=== PATIENT | female | born 1990 | race Two or more races ===

== ENCOUNTER 2017-05-22 19:04 | Emergency (ER) | payer OTHER ==
[~2017-05-22] VITALS: Ht 154.9 cm; Wt 104.3 kg
[2017-05-22] MEDS ORDERED: NKM (19:17)
[2017-05-22 19:30] VITALS: BP 133/82
[2017-05-22] MEDS ORDERED: Bacitracin Oint UD TOPIC ONE (19:45)
[2017-05-22] MEDS ORDERED: Tetanus/Diptheria/Pertussis Vaccine 0.5ml Syr IM ONE (20:00)
--- NOTE | 2017-05-22 20:13 | Emergency Room Report ---
History of Present Illness General Chief Complaint: Wound Recheck/Suture Removal Source: Patient Present Illness HPI 26 Yo Female presents to the ED c/O in severity pain, tenderness, erythema about several open wounds on her right foot that were sustained 2 days ago. pt. reports stepping through a plastic covering on the ground at a hot tub. pt. reports open wounds were sustained from this, and that her symptoms have been progressive. pt. reported initial bleeding. she reports oozing/ crusting now with erythema. pt. is not sure when her last tetanus vaccination was. palpation and weight bearing exacerbate her symptoms. Denies fevers or chills. denies bony pain. Denies numbness tingling or loss of sensation or gross motor movements of the extremities, incontinence of bowel or bladder. Denies CP, Palpitations, LOC, AMS, dizziness, Changes in Vision, Sensation, paresthesias, or a sudden severe headache. Allergies: Coded Allergies: No Known Allergies (Unverified , 05/22/17) Patient History Past Medical History: see triage record Past Surgical History: none Pertinent Family History: none Last Menstrual Period: 2 weeks ago Reviewed Nursing Documentation: PMH: Agreed, PSxH: Agreed Nursing Documentation-PMH Past Medical History: No Stated History Review of Systems All Other Systems: negative except mentioned in HPI Physical Exam Vital Signs Date Time Temp Pulse Resp B/P (MAP) Pulse Ox O2 Delivery O2 Flow Rate FiO2 05/22/17 19:17 99.0 82 16 133/82 97 Room Air Sp02 EP Interpretation: reviewed, normal General Appearance: alert, GCS 15, non-toxic, mild distress Head: normocephalic, atraumatic Eyes: bilateral eye normal inspection, bilateral eye PERRL ENT: hearing grossly normal, normal voice Neck: full range of motion Respiratory: lungs clear, normal breath sounds, speaking full sentences Cardiovascular #1: regular rate, rhythm, normal capillary refill Musculoskeletal: back normal, gait/station normal, normal range of motion, swelling - right foot swelling, erythema, and increased temperature to palpation. good cap refill, pedal pulses equal, and NVI. erythema is most prominently surrounding crusted abrasion on the plantar aspect of the right great toe. , tender - right foot. Neurologic: alert, oriented x3, responsive, motor strength/tone normal, sensory intact, speech normal Skin: no rash, warm/dry, well hydrated, other - right foot swelling, erythema, and increased temperature to palpation. good cap refill, pedal pulses equal, and NVI. erythema is most prominently surrounding crusted abrasion on the plantar aspect of the right great toe. , abrasions Medical Decision Making PA Attestation Dr. Golden is my supervising Physician whom patient management has been discussed with. Diagnostic Impression: Primary Impression: Cellulitis Qualified Codes: L03.115 - Cellulitis of right lower limb Additional Impression: Abrasions of multiple sites ER Course 26 Yo Female presents to the ED c/O in severity pain, tenderness, erythema about several open wounds on her right foot that were sustained 2 days ago. pt. reports stepping through a plastic covering on the ground at a hot tub. pt. reports open wounds were sustained from this, and that her symptoms have been progressive. pt. reported initial bleeding. she reports oozing/ crusting now with erythema. pt. is not sure when her last tetanus vaccination was. palpation and weight bearing exacerbate her symptoms. Denies fevers or chills. denies bony pain. Denies numbness tingling or loss of sensation or gross motor movements of the extremities, incontinence of bowel or bladder. Denies CP, Palpitations, LOC, AMS, dizziness, Changes in Vision, Sensation, paresthesias, or a sudden severe headache. Ddx considered but are not limited to cellulitis, DVT, ingrown toe nail, fracture, d/L, gout just to name a few. Vital signs: are WNL, pt. is afebrile H&PE are most consistent with abrasions of multiple sites on the right LE, and secondary cellulitis. ORDERS: none required at this time, the diagnosis is clinical ED INTERVENTIONS: -Tdap vaccination is administered. - Bactrim PO - Keflex PO - Bacitracin is applied after wound cleaning. --Patient is provided with crutches and instructed on their use DISCHARGE: At this time pt. is stable for d/c to home. Will provide printed patient care instructions, and any necessary prescriptions. Care plan and follow up instructions have been discussed with the patient prior to discharge. Last Vital Signs Date Time Temp Pulse Resp B/P (MAP) Pulse Ox O2 Delivery O2 Flow Rate FiO2 05/22/17 19:17 99.0 82 16 133/82 97 Room Air Disposition: HOME, SELF-CARE Condition: Stable Scripts Trimethoprim/Sulfamethoxazole 160/800* (BACTRIM DS TABLET*) 1 Each Tablet 1 TAB ORAL TWICE A DAY for 7 Days, #14 TAB Prov: Yessenia Powers 05/22/17 Cephalexin* (KEFLEX*) 500 Mg Capsule 500 MG ORAL EVERY 12 HOURS for 7 Days, #14 CAP 0 Refills Prov: Yessenia Powers 05/22/17 Mupirocin Calcium (Bactroban) 15 Gm Cream..g. 1 APPLIC TOPIC THREE TIMES A DAY, #15 GM Prov: Yessenia Powers 05/22/17 Hydrocodone Bit/Acetaminophen 5-325* (NORCO 5-325*) 1 Each Tablet 1 TAB ORAL Q6H Y for For Pain, #5 TAB 0 Refills Prov: Yessenia Powers 05/22/17 Referrals: OTHER,REFERRING (PCP) Patient Instructions: Cellulitis Additional Instructions: Take medications as directed. Follow up with a Primary Care Provider in 3-5 days, even if your symptoms have resolved. --Please review list of primary care clinics, if you do not already have a primary care provider Return sooner to ED if new symptoms occur, or current symptoms become worse. Do not drink alcohol, drive, or operate heavy machinery while taking [place] as this may cause drowsiness. - Please note that this Emergency Department Report was dictated using [employer] system supervisor technology software, occasionally this can lead to erroneous entry secondary to interpretation by the dictation equipment. Yessenia Powers May 22, 2017 20:13
[2017-05-22] MEDS ORDERED: Bactrim DS (160mg/800mg) tab ORAL ONE (20:15)
[2017-05-22] MEDS ORDERED: Cephalexin 500mg cap ORAL ONE (20:15)
[2017-05-22] MEDS ORDERED: NORCO 5-325 TA1 EACH ORAL (20:29)
[2017-05-22] MEDS ORDERED: CEPHALEXIN500 MG ORAL (20:29)
[2017-05-22] MEDS ORDERED: BACTROBAN CR1 APPLIC TOPIC (20:29)
[2017-05-22] MEDS ORDERED: BACTRIM DS TAB1 EAC1 ORAL (20:29)
[2017-05-22 20:45] VITALS: BP 137/86
[2017-05-22 20:57] VITALS: BP 137/86
== END 2017-05-22 20:57 | disposition home or self-care (01) ==
LOC: EMR 19:46
DX: L03.115 Cellulitis of right lower limb (principal); S90.811A Abrasion, right foot, initial encounter; Z23 Encounter for immunization; W22.09XA Striking against other stationary object, initial encounter; Y92.9 Unspecified place or not applicable
CPT/HCPCS: 90471; 90715; 99284

== ENCOUNTER 2017-12-28 19:29 | Emergency (ER) | payer MEDICAID, OTHER ==
[~2017-12-28] VITALS: Ht 154.9 cm; Wt 108.9 kg
[~2017-12-28 19:29] MED LIST: BACTRIM DS TAB1 EAC1 ORAL; BACTROBAN CR1 APPLIC TOPIC; CEPHALEXIN500 MG ORAL; NKM; NORCO 5-325 TA1 EACH ORAL
--- NOTE | 2017-12-28 20:58 | Diagnostic Imaging Report ---
EXAM: XR Abdomen, 2 Views CLINICAL HISTORY: PAIN TECHNIQUE: Frontal view of the abdomen/pelvis with upright view of the abdomen. COMPARISON: No relevant prior studies available. FINDINGS: Intraperitoneal space: See below. Gastrointestinal tract: Unremarkable. No dilation. Bones/joints: Unremarkable. Soft tissues: IUD projects within the central pelvis. IMPRESSION: 1. IUD projects within the central pelvis. 2. Unremarkable study.
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
[2017-12-28] MEDS ORDERED: NAPROXEN250 MG ORAL (21:07)
[2017-12-28 21:21] VITALS: BP 116/79
== END 2017-12-28 21:22 | disposition home or self-care (01) ==
LOC: EMR 20:15
DX: R10.9 Unspecified abdominal pain (principal); M54.2 Cervicalgia; M54.9 Dorsalgia, unspecified
CPT/HCPCS: 74018; 99283

== ENCOUNTER 2018-08-09 16:44 | Emergency (ER) | payer MEDICAID ==
[~2018-08-09] VITALS: Ht 154.9 cm; Wt 110.7 kg
[~2018-08-09 16:44] MED LIST changes: +NAPROXEN250 MG ORAL
[2018-08-09] MEDS ORDERED: VENTOLIN HFA18 GM INH (16:52)
[2018-08-09 16:59] VITALS: BP 115/75
[2018-08-09] MEDS ORDERED: Ipratropium 0.02% Inh Soln 2.5ml UD HHN ONE (17:15)
[2018-08-09] MEDS ORDERED: Albuterol ud Inhalation HHN ONE ×2 (17:15→18:00)
[2018-08-09] MEDS ORDERED: Promethazine/Codeine 5ml UD ORAL ONE (18:00)
--- NOTE | 2018-08-09 18:20 | Emergency Room Report ---
History of Present Illness General Chief Complaint: Asthma Source: Patient Present Illness HPI Patient presents with reports of increased asthma exacerbation Reports that her home medications were not helping very much Denies any productive sputum however she has had increased cough Denies any chest pain denies any vomiting or diarrhea denies any neck pain or photophobia Patient reports that she does get several exacerbations throughout the year Allergies: Coded Allergies: No Known Allergies (Unverified , 05/22/17) Patient History Past Medical History: see triage record Pertinent Family History: none Last Menstrual Period: 06/2018 Now: No Reviewed Nursing Documentation: PMH: Agreed; PSxH: Agreed Nursing Documentation-PM Past Medical History: No History, Except For Hx Asthma: Yes Review of Systems All Other Systems: negative except mentioned in HPI Physical Exam Vital Signs Date Time Temp Pulse Resp B/P (MAP) Pulse Ox O2 Delivery O2 Flow Rate FiO2 08/09/18 16:47 98.2 137 23 123/72 96 Room Air 08/09/18 17:04 21 Sp02 EP Interpretation: reviewed, normal General Appearance: well appearing, no apparent distress Head: normocephalic, atraumatic Eyes: bilateral eye PERRL, bilateral eye EOMI ENT: hearing grossly normal, normal pharynx, TMs + canals normal, uvula midline Neck: full range of motion, supple, no meningismus, no bony tend Respiratory: no rhonchi, no respiratory distress, no retraction, no accessory muscle use, wheezing - Bilaterally Cardiovascular #1: normal peripheral pulses, regular rate, rhythm, no edema, no gallop, no JVD, no murmur Gastrointestinal: normal bowel sounds, non tender, soft, no mass, no organomegaly, non-distended, no guarding, no hernia, no pulsatile mass, no rebound Genitourinary: no CVA tenderness Musculoskeletal: normal inspection Neurologic: oriented x3, responsive, dentistry professor III-XII nml as tested, motor strength/ tone normal, sensory intact Psychiatric: mood/affect normal Skin: normal color, no rash, warm/dry, palpation normal Lymphatic: normal inspection, no adenopathy Medical Decision Making Diagnostic Impression: Primary Impression: Asthma attack ER Course Multiple differentials in consideration Patient has breathing treatments initiated along with oral steroids On repeat evaluation lung sounds have significantly improved Patient was somewhat tachycardic however has had several albuterol dosages Likely explaining this tachycardia patient otherwise feels significantly improved and will have initial conservative outpatient trial Last Vital Signs Date Time Temp Pulse Resp B/P (MAP) Pulse Ox O2 Delivery O2 Flow Rate FiO2 08/09/18 18:09 127 24 97 Room Air 21 08/09/18 16:59 98.0 115/75 Status: improved Disposition: HOME, SELF-CARE Condition: Improved Scripts Ibuprofen* (MOTRIN*) 600 Mg Tablet 600 MG ORAL Q8H PRN for For Pain, #20 TAB 0 Refills Prov: Tamiko Nguyen DO 08/09/18 Prednisone* (PREDNISONE*) 20 Mg Tablet 20 MG ORAL BID, #8 TAB Prov: Tamiko Nguyen DO 08/09/18 Promethazine Hcl (PROMETHAZINE HCL*) 6.25 Mg/5 Ml Syrup 5 ML ORAL Q8H, #120 ML 0 Refills Prov: Tamiko Nguyen DO 08/09/18 Albuterol Sulfate* (ALBUTEROL SULFATE HHN*) 2.5 Mg/3 Ml Vial.neb 2.5 MG HHN Q4H PRN for Shortness of Breath, #25 VIAL Prov: Tamiko Nguyen DO 08/09/18 Referrals: [facility],REFERRING (PCP) Additional Instructions: Patient is provided with the discharge instructions notified to follow up with primary doctor in the next 2-3 days otherwise return to the er with any worsening symptoms. Please note that this report is being documented using [employer] technology. This can lead to erroneous entry secondary to incorrect interpretation by the dictating instrument. Tamiko Nguyen DO Aug 09, 2018 18:20
[2018-08-09] MEDS ORDERED: ALBUTEROL2.5 MG/3 M HHN (18:41)
[2018-08-09] MEDS ORDERED: PROMETHAZI6.25 MG/1 ORAL (18:41)
[2018-08-09] MEDS ORDERED: PREDNISONE20 MG ORAL (18:42)
[2018-08-09] MEDS ORDERED: IBUPROFEN600 MG ORAL (18:53)
[2018-08-09 19:06] VITALS: BP 135/68
== END 2018-08-09 19:10 | disposition home or self-care (01) ==
LOC: EMR 17:26
DX: J45.901 Unspecified asthma with (acute) exacerbation (principal)
CPT/HCPCS: 94640; 99284; J7512

== ENCOUNTER 2018-10-26 20:34 | Inpatient (IN) | payer MEDICAID ==
[~2018-10-26] VITALS: Ht 154.9 cm; Wt 108.9 kg
[~2018-10-26 20:34] MED LIST changes: +ALBUTEROL2.5 MG/3 M HHN; +IBUPROFEN600 MG ORAL; +PREDNISONE20 MG ORAL; +PROMETHAZI6.25 MG/1 ORAL; +VENTOLIN HFA18 GM INH
[2018-10-26 21:04] VITALS: BP 118/85
--- NOTE | 2018-10-26 21:05 | NUR ---
ED Nurse Note: Patient walked in to ER c/o SOB for 2 days. pt has Asthma and inhalers she usually takes did not work. labored breathing with SOB noted. pt aao x4, mild agitation due to SOB, and ambulatory. skin clean and intact.
--- NOTE | 2018-10-26 21:10 | Emergency Room Report ---
History of Present Illness General Chief Complaint: Asthma Source: Patient Present Illness HPI Patient has history of asthma. She's had worsening dyspnea over the course of several days. She's been using her inhaler nebulizer says is not working for her. She has any fevers or chills. She has some back pain and headache also. She's had steroids in the past. She's not taking them at this time. She's been using given Ativan at home. This is not her worst attack. She doesn't believe she is at this time. She denies nausea vomiting or diarrhea. There is no calf pain or edema. She has some back pain with coughing. Allergies: Coded Allergies: No Known Allergies (Unverified , 05/22/17) Patient History Past Medical History: see triage record Social History: Denies: smoking Social History Narrative lives in [place] Last Menstrual Period: Oct 04 2018 Now: No Reviewed Nursing Documentation: PMH: Agreed; PSxH: Agreed Nursing Documentation-PMH Hx Asthma: Yes Review of Systems All Other Systems: negative except mentioned in HPI Physical Exam Vital Signs Date Time Temp Pulse Resp B/P (MAP) Pulse Ox O2 Delivery O2 Flow Rate FiO2 10/26/18 20:56 99.0 127 22 90 Room Air 10/26/18 21:04 118/85 Sp02 EP Interpretation: reviewed, normal General Appearance: well appearing, no apparent distress, GCS 15 Head: normocephalic Eyes: bilateral eye normal inspection, bilateral eye PERRL, bilateral eye EOMI ENT: moist mucus membranes Neck: supple Respiratory: no accessory muscle use, respiratory distress - mild, wheezing, expiration, inspiration Cardiovascular #1: no edema, tachycardia Cardiovascular #2: 2+ radial (R) Gastrointestinal: normal inspection, normal bowel sounds, non tender, no mass, non-distended, overweight Musculoskeletal: back normal, gait/station normal, normal range of motion, no calf tenderness, Roseann's Sign negative Neurologic: alert, oriented x3 Psychiatric: mood/affect normal Skin: normal inspection, warm/dry Medical Decision Making Diagnostic Impression: Primary Impression: Status asthmaticus Qualified Codes: J45.42 - Moderate persistent asthma with status asthmaticus Additional Impressions: Leukocytosis Qualified Codes: D72.828 - Other elevated white blood cell count Elevated lactic acid level Eosinophilia Hypomagnesemia ER Course Patient with a history of asthma with exacerbation at this time. She'll includes asthma, bronchitis, pneumonia amongst others. Patient will be evaluated with chest x-ray and labs. The patient retreated with Solu-Medrol and breathing treatments. Elevated WBC and lactate. Magnesium is low. Improved with treatment. Due to elevated WBC and lactate, I discussed staying in the hospital. She states she cannot. Will re-assess after magnesium and repeat lactate. She states she has no infective symptoms. Repeat lactic acid higher. I have told her that she risks by leaving the hospital. She states she has to drive family members. She is insisting on signing out AMA. She is asking if she should have antibiotics. I have stated I cannot say at this time and that this is one reason why she needs to be hospitalized. Will cover with rocephin and azithromycin. Also fluid resuscitation. Rediscussed risk of and patient now agrees with hospitalization. Improved and ambulates without dyspnea. Patient still wants to go home. Discussed with Dr. Mo who requests telemetry 2:00. Laboratory Tests Test 10/26/18 21:00 10/26/18 21:26 10/26/18 23:00 Urine Color Pale yellow Urine Appearance Clear Urine pH 5.0 (4.5-8.0) Urine Specific [place] 1.010 (1.005-1.035) Urine Protein Negative (NEGATIVE) Urine Glucose (UA) Negative (NEGATIVE) Urine Ketones Negative (NEGATIVE) Urine Blood Negative (NEGATIVE) Urine Nitrite Negative (NEGATIVE) Urine Bilirubin Negative (NEGATIVE) Urine Urobilinogen Normal MG/DL (0.0-1.0) Urine Leukocyte Esterase Negative (NEGATIVE) Urine HCG, Qualitative Negative (NEGATIVE) White Blood Count 17.1 K/UL (4.8-10.8) H Red Blood Count 4.89 M/UL (4.20-5.40) Hemoglobin 14.5 G/DL (12.0-16.0) Hematocrit 43.0 % (37.0-47.0) Mean Corpuscular Volume 88 FL (80-99) Mean Corpuscular Hemoglobin 29.7 PG (27.0-31.0) Mean Corpuscular Hemoglobin Concent 33.8 G/DL (32.0-36.0) Red Cell Distribution Width 12.9 % (11.6-14.8) Platelet Count 288 K/UL (150-450) Mean Platelet Volume 7.3 FL (6.5-10.1) Neutrophils (%) (Auto) 69.0 % (45.0-75.0) Lymphocytes (%) (Auto) 17.5 % (20.0-45.0) L Monocytes (%) (Auto) 4.0 % (1.0-10.0) Eosinophils (%) (Auto) 8.2 % (0.0-3.0) H Basophils (%) (Auto) 1.4 % (0.0-2.0) Sodium Level 136 MMOL/L (136-145) Potassium Level 3.9 MMOL/L (3.5-5.1) Chloride Level 101 MMOL/L (98-107) Carbon Dioxide Level 25 MMOL/L (21-32) Anion Gap 10 mmol/L (5-15) Blood Urea Nitrogen 11 mg/dL (7-18) Creatinine 0.8 MG/DL (0.55-1.30) Estimate Glomerular Filtration Rate > 60 mL/min (>60) Glucose Level 98 MG/DL (74-106) Lactic Acid Level 2.80 mmol/L (0.4-2.0) H 3.90 mmol/L (0.66-2.22) H Calcium Level 9.4 MG/DL (8.5-10.1) Magnesium Level 1.7 MG/DL (1.8-2.4) L Total Bilirubin 0.5 MG/DL (0.2-1.0) Aspartate Amino Transferase (AST) 23 U/L (15-37) Alanine Aminotransferase (ALT) 35 U/L (12-78) Alkaline Phosphatase 78 U/L (46-116) Total Creatine Kinase 195 U/L (26-308) Total Protein 7.4 G/DL (6.4-8.2) Albumin 3.8 G/DL (3.4-5.0) Globulin 3.6 g/dL Albumin/Globulin Ratio 1.1 (1.0-2.7) EKG Diagnostic Results Rate: tachycardiac Rhythm: NSR ST Segments: no acute changes Rhythm Strip Diag. Results EP Interpretation: yes Rhythm: no PVC's, no ectopy, other - ST Chest X-Ray Diagnostic Results Chest X-Ray Diagnostic Results : Chest X-Ray Ordered: Yes # of Views/Limited/Complete: 1 View Indication: Shortness of Breath EP Interpretation: Yes Interpretation: no consolidation, no effusion, no pneumothorax, other - hyperaeration Impression: Other Electronically Signed by: Electronically signed by Tay Golden MD Last Vital Signs Date Time Temp Pulse Resp B/P (MAP) Pulse Ox O2 Delivery O2 Flow Rate FiO2 10/27/18 09:56 110 20 98 Room Air 21 10/27/18 08:00 98.4 144/82 (102) Status: improved Disposition: ADMITTED INPATIENT Condition: Serious Tay Golden MD October 26, 2018 21:10
[2018-10-26] MEDS ORDERED: Ipratropium 0.02% Inh Soln 2.5ml UD HHN ONE (21:15)
[2018-10-26] MEDS ORDERED: Solu-MEDROL 125mg Inj IVP ONE (21:15)
[2018-10-26 21:30] LABS: APPEARANCE,URINE CLEAR; COLOR,URINE PALE YELLOW
[2018-10-26 21:31] LABS: BILIRUBIN, URINE NEGATIVE (NEGATIVE); GLUCOSE, URINE (UA) NEGATIVE (NEGATIVE); KETONES,URINE NEGATIVE (NEGATIVE); LEUKOCYTE ESTERASE ,URINE NEGATIVE (NEGATIVE); NITRITE,URINE NEGATIVE (NEGATIVE); PROTEIN,URINE NEGATIVE (NEGATIVE); UROBILINOGEN,URINE NORMAL MG/DL (0.0-1.0)
[2018-10-26] MEDS: Albuterol ud Inhalation HHN SCH ×3 (21:35→22:09)
--- NOTE | 2018-10-26 21:50 | NUR ---
ED Nurse Note: patient is getting breathing treatment in bed.
[2018-10-26 22:04] LABS: BASOPHILS % (AUTO) 1.4 % (0.0-2.0); EOSINOPHILS % (AUTO) 8.2 % (0.0-3.0); HEMOGLOBIN 14.5 G/DL (12.0-16.0); LYMPHOCYTES % (AUTO) 17.5 % (20.0-45.0); MEAN CORPUSCULAR VOLUME 88 FL (80-99); PLATELET COUNT 288 K/UL (150-450); RED BLOOD COUNT 4.89 M/UL (4.20-5.40); RED CELL DISTRIBUTION WIDTH 12.9 % (11.6-14.8); WHITE BLOOD COUNT 17.1 K/UL (4.8-10.8)
[2018-10-26] MEDS ORDERED: Acetaminophen Soln 160mg/5ml ORAL ONE ×2 (22:15→23:00)
[2018-10-26 22:20] LABS: ANION GAP 10 mmol/L (5-15); BLOOD UREA NITROGEN 11 mg/dL (7-18); CALCIUM 9.4 MG/DL (8.5-10.1); CARBON DIOXIDE 25 MMOL/L (21-32); CHLORIDE 101 MMOL/L (98-107); CREATININE 0.8 MG/DL (0.55-1.30); POTASSIUM 3.9 MMOL/L (3.5-5.1); SODIUM 136 MMOL/L (136-145)
[2018-10-26 22:25] LABS: ALANINE AMINOTRANSFERASE 35 U/L (12-78); ALBUMIN 3.8 G/DL (3.4-5.0); ALBUMIN/GLOBULIN RATIO 1.1 (1.0-2.7); ALKALINE PHOSPHATASE 78 U/L (46-116); ASPARTATE AMINO TRANSFERASE 23 U/L (15-37); BILIRUBIN,TOTAL 0.5 MG/DL (0.2-1.0); CREATINE KINASE 195 U/L (26-308)
[2018-10-26] MEDS ORDERED: cefTRIAXone 1 GM in NS 55 ML IVPB ONE (23:45)
[2018-10-26] MEDS ORDERED: Azithromycin 500 MG in D5W 275 ML IVPB ONE (23:45)
[2018-10-26] MEDS ORDERED: Sodium Chloride 3,300 ML IVLG ONE (23:45)
[2018-10-27] MEDS ORDERED: Albuterol ud Inhalation HHN ONE (00:30)
[2018-10-27] MEDS: guaiFENesin w/Codeine 5ml Liq ud ORAL PRN ×2 (00:45→07:37)
--- NOTE | 2018-10-27 02:41 | NUR ---
ED Nurse Note: No Ped Tylenol available per pipeline. Unable to administer medication
--- NOTE | 2018-10-27 02:55 | NUR ---
ED Nurse Note: Pt transferred to SDU floor as telemetry overflow. Pt A/Ox4, showing no signs of acute distress. VSS. Report given to IJEOMA Lu. All belongings taken with patient along with belongings list. IV intact and asymptomatic, pt connected to journeyman patternmaker and accompanied by two RN's
--- NOTE | 2018-10-27 03:00 | NUR ---
NURSE NOTES: Received report from Ana Laura Rn, pt.in bed awake x'4-able to make needs known, no signs or symptoms of acute cardiac or respiratory distress noted, cardiac monitoring placed, pt.appears to be sating well on room air- no distress noted, pt.oriented to room and pt.teaching done, bed in lowest position and call light within easy reach, bed alarm side rails up x's3 and safety brakes engaged, skin intact-full body assessment done, VS taken, safety measures continued, will continue with plan of care. Will call for admission orders.
[2018-10-27 03:38] VITALS: BP 162/94
--- NOTE | 2018-10-27 03:48 | NUR ---
NURSE NOTES: Called DR. Mo for admitting orders - per doctor to put in orders for Solu Medrol 60Mg IV Q6hrs, code status Full code, DuoNeb treatment Q6HRS prn SOB, NS 100cc/hr, regular diet- orders carried out. Addendum: 10/27/18 at 0356 by BELIA REDD RN RN PER DR. Mo- no other orders for now.
[2018-10-27] MEDS ORDERED: Albuterol/Ipratropium 3ml neb HHN PRN (04:00)
[2018-10-27] MEDS ORDERED: Solu-MEDROL 125mg Inj IVP SCH (06:00)
--- NOTE | 2018-10-27 07:00 | NUR ---
HAND-OFF: Report given to Hiwot RAPHAEL, pt. remains stable and no signs of distress noted. Addendum: 10/27/18 at 0704 by BELIA REDD RN RN hand off nurse aware patents heart rate goes above when she is out of bed walking to bathroom, but heart goes down to 105-109 when she returns to bed. Aware to follow up with doctor regarding cough medicine pt. is requesting for cough.
--- NOTE | 2018-10-27 07:07 | NUR ---
NURSE NOTES: Received bedside report from Aly RAPHAEL. Pt. in bed, awake, a/o x 4. No sign of distress. Denies pain at present. IV site at right FA #20g. in placed SL. Bed in low position, locked. Call light within reach. Will cont. to monitor.
[2018-10-27 08:00] VITALS: BP 144/82
--- NOTE | 2018-10-27 09:38 | NUR ---
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
--- NOTE | 2018-10-27 09:48 | NUR ---
*-* INSURANCE *-* CLINICALS HAVE BEEN FAXED TO: [facility] KHURRAM:DARVIN P:[phone] F:[phone]
[2018-10-27] MEDS ORDERED: PROAIR HFA8.5 GM INH (11:12)
[2018-10-27] MEDS ORDERED: DULERA 200 MCG/13 GM IH (11:13)
[2018-10-27] MEDS ORDERED: PHENERGAN25 M1 ORAL (11:14)
--- NOTE | 2018-10-27 11:35 | NUR ---
Discharge: Patient is being discharged to home (self care)from medical care. Awake, alert and oriented x4. After care instructions were given. Patient verbalized understanding of after care instructions upon discharge. All medical devices such as IV,air sampling and monitoring and ID band were removed. Patient ambulated out with all personal belongings with steady gait. Patient stable.
--- NOTE | 2018-10-27 11:49 | Diagnostic Imaging Report ---
Indication: Dyspnea Comparison: None A single view chest radiograph was obtained. Findings: Cardiomediastinal appearance is within normal limits for age. The lungs are clear. Pulmonary vascularity is appropriate. The diaphragmatic contour is smooth and costophrenic angles are sharp. No pleural effusions are identified. The bones are unremarkable. Impression: No acute findings
--- NOTE | 2018-10-27 22:15 | History and Physical Report ---
DATE OF ADMISSION: 10/27/2018 HISTORY OF PRESENT ILLNESS: This is a 28-year-old female, who came to the hospital with exacerbation of asthma. The patient has a long standing history of asthma and takes only ProAir at home. She does not take a controller medication. The patient states she has seen multiple doctors in the [place] area, but none have been able to help her with her asthma. She came to the hospital with exacerbation. The patient also reports taking steroids in the past. She reports predominantly a cough and shortness of breath issue. PAST MEDICAL HISTORY: Asthma. PREVIOUS SURGERIES: None. ALLERGIES: None. SOCIAL HISTORY: Denies alcohol or tobacco usage. She lives in [place]. REVIEW OF SYSTEMS: Denies any headaches, hematemesis, melena, or hematochezia. PHYSICAL EXAMINATION: GENERAL: Revealed a 28-year-old female. VITAL SIGNS: Blood pressure is 110/80, heart rate 82, and respirations 18. She is afebrile. HEENT: Unremarkable. CHEST: She has few rhonchi. ABDOMEN: Soft. EXTREMITIES: There is no edema. NEUROLOGIC: Nonfocal. LABORATORY DATA: Laboratory testing is unremarkable. Normal CBC and BMP. The patient has elevated white count of 17,000. Initial lactate was also 2.8, which increased to 3.9. However, a repeat was not ordered. IMPRESSION: Exacerbation of bronchial asthma. DISCUSSION: The patient is doing well at this point in time. At this time, she is any further blood testing. We will allow discharge on oral prednisone, Dulera, ProAir, and Phenergan cough syrup. Outpatient follow-up with Pulmonology. Ben Mo M.D. DR: BRADLEY JOB#: [id number] CC:
--- NOTE | 2018-10-28 14:18 | Discharge Summary ---
Discharge Summary Discharge Summary _ DATE OF ADMISSION: 10/27/2018 DATE OF DISCHARGE: 10/27/2018 DISCHARGED BY: Dr. Mo REASON FOR ADMISSION: 28 years old female with past medical history of asthma , presented with worsening dyspnea over the course of several days. Patient was using her inhaler , but stated that it was not working for her at this time. She denied fever and chills. She reported headache and back pain. She admitted to using steroids in the past. This was not her worst attack. She denied nausea, vomiting, and diarrhea. Upon evaluation patient was tachycardic and tachypneic, pulse oximetry was 90% on the room air. Laboratory work-up revealed leukocytosis WBC 17.1, stable hemoglobin and hematocrit. Elevated eosinophil count of 8.2. Stable electrolytes and renal parameters. Lactic acid 2.8. Magnesium 1.7. EKG revealed sinus tachycardia, no acute ischemic changes. Chest x-ray revealed no acute findings. Patient received-nebulizing treatments with bronchodilator. Magnesium was replaced. Repeated lactic acid was higher- 3.9. Patient was given empiric Rocephin and azithromycin. Patient provided with fluid resuscitation. Patient subsequently was admitted to stepdown unit. HOSPITAL COURSE: Patient admitted to stepdown unit Supplemental oxygen provided as needed to keep pulse oximetry above 92%. Pulmonary toilet with bronchodilators provided. Patient started on IV steroids. Antitussive provided as needed. Patient clinically improved. Pulse oximetry was stable on room air, no evidence of infection. Patient was stable for discharge home on oral prednisone, inhalers: Dulera ( maintenance) and Pro-air (rescue) and antitussive with Phenergan syrup . Follow-up with [facility] as outpatient. Due to rapid and unexpected improvement in patient condition, patient was discharged in 1 day. FINAL DIAGNOSES: Acute asthma exacerbation Lactic acidosis Eosinophilia Hypomagnesemia DISCHARGE MEDICATIONS: See Medication Reconciliation list. DISCHARGE INSTRUCTIONS: Patient was discharged home. Return to ED precautions discussed. Follow up with [facility] grader in one week.. I have been assigned to dictate discharge summary for this account. I was not involved in the patient's management. Lily Markham NP October 28, 2018 14:18
== END 2018-10-27 11:35 | disposition home or self-care (01) | DRG 141 ==
LOC: EMR 21:14 → 2W 10-27 01:25 → EDBEDREQ 10-27 02:03 → EDBEDREQSVC 10-27 02:03 → EDBEDREQ 10-27 02:05 → 2W 10-27 02:46
DX: J45.901 Unspecified asthma with (acute) exacerbation (principal); D72.1 Eosinophilia; E87.2 Acidosis; E83.42 Hypomagnesemia
CPT/HCPCS: 36415; 71045; 80053; 81003; 81025; 82550; 83605; 83735; 85025; 93005; 94640; 94664; 96361; 96365; 96367; 96368; 96375; 99285; J7620